=== PATIENT | female | born 2000 | race Caucasian/White ===

== ENCOUNTER 2019-10-29 09:20 | Inpatient (IN) | payer MEDICAID ==
[~2019-10-29] VITALS: Ht 160 cm; Wt 74.2 kg
[2019-10-29] MEDS ORDERED: SODIUM CHLORIDE 0.9% 1,000 ML IVB ONE (09:31)
[2019-10-29] MEDS ORDERED: PANTOPRAZOLE 40 MG/10 ML VIAL INJ IV STA (09:31)
[2019-10-29] MEDS ORDERED: MORPHINE SULFATE 4 MG/ML SYR/VIAL IV ONE (09:45)
[2019-10-29] MEDS ORDERED: ONDANSETRON HCL 4 MG/2 ML VIAL IV ONE (09:45)
[2019-10-29 09:46] LABS: Urine WBC None Seen /hpf (0 - 5)
[2019-10-29 09:47] LABS: Basophils # (auto) 0.1 10 ^3/uL (0-0.2); Basophils % (auto) 0.6 % (0.0-2.0); Eosinophils # (auto) 0 10 ^3/uL (0-0.8); Eosinophils % (auto) 0.2 % (0.0-7.0); Hemoglobin 15.2 g/dL (12.2-16.2); Lymphocytes # (auto) 1.8 10 ^3/uL (0.4-5.4); Lymphocytes % (auto) 12.3 % (10.0-50.0); Mean Corpuscular Hemoglobin 31.2 pg (28.0-32.0); Mean Corpuscular Hgb Conc. 34.6 g/dL (32.0-36.0); Mean Corpuscular Volume 90.1 fL (80.0-100.0); Monocytes # (auto) 0.8 10 ^3/uL (0-1.3); Monocytes % (auto) 5.3 % (0.0-12.0); Neutrophils # (auto) 12.1 10 ^3/uL (1.6-8.6); Neutrophils % (auto) 81.6 % (37.0-80.0); Nucleated Red Blood Cells % 0.1 %; Platelet Count (auto) 293 10^3/uL (140-450); Red Blood Cells 4.88 10^6/uL (4.0-5.20); Red Cell Distribution Width 12.6 % (11.8-14.3); White Blood Cell 14.8 10^3/uL (4.4-10.8)
[2019-10-29 10:02] LABS: Urine Amorphous Crystal MANY /hpf (None Seen); Urine Bacteria NONE SEEN /hpf (None Seen); Urine Blood 3+ /uL (Negative); Urine Mucus FEW (None Seen); Urine Specific Gravity 1.036 (1.001-1.035)
[2019-10-29 10:06] LABS: Albumin 4.7 g/dL (3.4-5.0); Calcium 9.5 mg/dL (8.5-10.1); Potassium 3.6 mmol/L (3.5-5.1)
[2019-10-29 10:09] LABS: Total Protein 8.5 g/dL (6.4-8.2)
[2019-10-29] MEDS ORDERED: HYDROcodone-ACET 5/325MG TAB PO PRN (13:30)
[2019-10-29] MEDS ORDERED: ACETAMINOPHEN 500 MG TAB PO PRN (13:30)
[2019-10-29] MEDS: metroNIDAZOLE 500MG/100ML 100 ML IV SCH ×2 (13:45→21:42)
[2019-10-29] MEDS ORDERED: FAMOTIDINE 20 MG TAB PO ONE (13:45)
[2019-10-29] MEDS: SOD CHL 0.9%/ KCL 20MEQ 1,000 ML IV SCH ×2 (13:45→23:52)
[2019-10-29] MEDS ORDERED: levoFLOXacin 500MG 100 ML IV ONE (13:45)
[2019-10-29 14:30] VITALS: BP 118/49
[2019-10-29 17:00] VITALS: BP 108/63
[2019-10-29 20:00] VITALS: BP 116/61
[2019-10-29 22:00] VITALS: BP 116/61
[2019-10-30] VITALS (8 sets, daily range): BP systolic 96–152; BP diastolic 38–91
[2019-10-30] MEDS: metroNIDAZOLE 500MG/100ML 100 ML IV SCH ×3 (05:45→21:45)
[2019-10-30 06:17] LABS: Basophils # (auto) 0 10 ^3/uL (0-0.2); Basophils % (auto) 0.2 % (0.0-2.0); Eosinophils # (auto) 0.1 10 ^3/uL (0-0.8); Eosinophils % (auto) 0.8 % (0.0-7.0); Hematocrit 36.2 % (36.0-46.0); Hemoglobin 12.7 g/dL (12.2-16.2); Lymphocytes # (auto) 2.3 10 ^3/uL (0.4-5.4); Lymphocytes % (auto) 35.8 % (10.0-50.0); Mean Corpuscular Hemoglobin 31.3 pg (28.0-32.0); Mean Corpuscular Hgb Conc. 35.1 g/dL (32.0-36.0); Mean Corpuscular Volume 89.3 fL (80.0-100.0); Monocytes # (auto) 0.5 10 ^3/uL (0-1.3); Monocytes % (auto) 7.1 % (0.0-12.0); Neutrophils # (auto) 3.6 10 ^3/uL (1.6-8.6); Neutrophils % (auto) 56.1 % (37.0-80.0); Platelet Count (auto) 216 10^3/uL (140-450); Red Blood Cells 4.06 10^6/uL (4.0-5.20); Red Cell Distribution Width 12.5 % (11.8-14.3); White Blood Cell 6.5 10^3/uL (4.4-10.8)
[2019-10-30 06:33] LABS: BUN/Creatinine Ratio 12.2; Calcium 8.3 mg/dL (8.5-10.1); Potassium 3.4 mmol/L (3.5-5.1)
[2019-10-30] MEDS: ONDANSETRON HCL 4 MG/2 ML VIAL IV PRN ×3 (07:32→21:45)
[2019-10-30] MEDS: FAMOTIDINE 20 MG TAB PO SCH (09:13)
[2019-10-30] MEDS: MORPHINE SULF INJ 2 MG/ML SYRINGE 1ML IV PRN ×3 (09:14→21:45)
[2019-10-30] MEDS: levoFLOXacin 500MG 100 ML IV SCH (10:08)
[2019-10-30] MEDS: SOD CHL 0.9%/ KCL 20MEQ 1,000 ML IV SCH ×2 (10:40→21:45)
[2019-10-30 14:56] LABS: Urine WBC None Seen /hpf (0 - 5)
[2019-10-30 15:06] LABS: Urine Bacteria NONE SEEN /hpf (None Seen); Urine Blood 2+ /uL (Negative); Urine Specific Gravity 1.019 (1.001-1.035)
[2019-10-30 15:21] LABS: Protein, Urine 23.3 mg/dL (0.0-11.9)
[2019-10-31 05:00] VITALS: BP 106/45
[2019-10-31] MEDS: SOD CHL 0.9%/ KCL 20MEQ 1,000 ML IV SCH ×2 (06:00→15:30)
[2019-10-31] MEDS: metroNIDAZOLE 500MG/100ML 100 ML IV SCH (06:01)
[2019-10-31] MEDS: MORPHINE SULF INJ 2 MG/ML SYRINGE 1ML IV PRN ×3 (06:01→23:32)
[2019-10-31] MEDS: ONDANSETRON HCL 4 MG/2 ML VIAL IV PRN ×2 (06:01→23:33)
[2019-10-31 06:18] LABS: Potassium 3.6 mmol/L (3.5-5.1)
[2019-10-31 06:23] LABS: BUN/Creatinine Ratio 13.5; Calcium 8.9 mg/dL (8.5-10.1)
[2019-10-31 08:00] VITALS: BP 132/70
[2019-10-31 09:00] VITALS: BP 132/70
[2019-10-31] MEDS: levoFLOXacin 500MG 100 ML IV SCH (09:33)
[2019-10-31] MEDS: FAMOTIDINE 20 MG TAB PO SCH (09:33)
[2019-10-31] MEDS ORDERED: LIDOCAINE VISCOUS 2% 15ML UD ONE (12:07)
[2019-10-31] MEDS ORDERED: NALOXONE HCL 0.4 MG/ML VIAL ONE (12:07)
[2019-10-31] MEDS ORDERED: FLUMAZENIL 0.1 MG/ML INJ 10ML MDV IV ONE (12:07)
[2019-10-31] MEDS ORDERED: SODIUM CHLORIDE LOCK 10 ML ONE (12:07)
[2019-10-31] MEDS ORDERED: diphenhdrAMINE HCL 50 MG/1 ML VL ONE (12:08)
[2019-10-31 12:25] LABS: INR 1.21 (0.9-1.15); Partial Thromboplastin Time 28.3 sec (23.64-32.05)
[2019-10-31 13:00] VITALS: BP_SYST 117; BP_SYST 144; BP_DIAS 72; BP_DIAS 79
[2019-10-31] MEDS: fentaNYL CITRATE 100 MCG/2 ML VL ONE ×3 (13:20→13:28)
[2019-10-31] MEDS: MIDAZOLAM HCL 5 MG/ML-1ML VIAL ONE ×3 (13:20→13:28)
[2019-10-31] MEDS: METOCLOPRAMIDE HCL 5MG/ml INJ 2ml VIAL IV SCH ×2 (15:08→21:31)
[2019-10-31 17:00] VITALS: BP 104/49
[2019-10-31] MEDS: SUCRALFATE 1 GM/10 ML ORAL SUSP PO SCH ×2 (17:56→21:31)
[2019-10-31] MEDS: PANTOPRAZOLE 40 MG/10 ML VIAL INJ IV SCH (21:31)
[2019-10-31 21:48] VITALS: BP 112/48
[2019-11-01] MEDS: SOD CHL 0.9%/ KCL 20MEQ 1,000 ML IV SCH (01:30)
[2019-11-01 05:00] VITALS: BP 72/48
[2019-11-01] MEDS: SUCRALFATE 1 GM/10 ML ORAL SUSP PO SCH ×4 (05:54→22:41)
[2019-11-01] MEDS: METOCLOPRAMIDE HCL 5MG/ml INJ 2ml VIAL IV SCH ×3 (05:54→22:41)
[2019-11-01 08:30] VITALS: BP 143/72
[2019-11-01] MEDS: levoFLOXacin 500MG 100 ML IV SCH (09:34)
[2019-11-01] MEDS: PANTOPRAZOLE 40 MG/10 ML VIAL INJ IV SCH ×2 (09:34→22:41)
[2019-11-01] MEDS: MORPHINE SULF INJ 2 MG/ML SYRINGE 1ML IV PRN (10:34)
[2019-11-01] MEDS: ONDANSETRON HCL 4 MG/2 ML VIAL IV PRN (10:34)
[2019-11-01 11:44] LABS: Basophils # (auto) 0 10 ^3/uL (0-0.2); Basophils % (auto) 0.2 % (0.0-2.0); Eosinophils # (auto) 0 10 ^3/uL (0-0.8); Eosinophils % (auto) 0.1 % (0.0-7.0); Hematocrit 40.4 % (36.0-46.0); Hemoglobin 13.9 g/dL (12.2-16.2); Lymphocytes # (auto) 2.4 10 ^3/uL (0.4-5.4); Mean Corpuscular Hemoglobin 30.6 pg (28.0-32.0); Mean Corpuscular Hgb Conc. 34.3 g/dL (32.0-36.0); Mean Corpuscular Volume 89.2 fL (80.0-100.0); Monocytes % (auto) 7.6 % (0.0-12.0); Neutrophils # (auto) 9.2 10 ^3/uL (1.6-8.6); Neutrophils % (auto) 73.1 % (37.0-80.0); Platelet Count (auto) 279 10^3/uL (140-450); Red Blood Cells 4.53 10^6/uL (4.0-5.20); Red Cell Distribution Width 12.5 % (11.8-14.3); White Blood Cell 12.6 10^3/uL (4.4-10.8)
[2019-11-01 12:06] LABS: Albumin 3.9 g/dL (3.4-5.0); Potassium 3.4 mmol/L (3.5-5.1)
[2019-11-01 12:12] LABS: BUN/Creatinine Ratio 8.6; Bilirubin, Total 0.8 mg/dL (0.2-1.0); Total Protein 7.4 g/dL (6.4-8.2)
[2019-11-01 13:00] VITALS: BP 113/69
[2019-11-01] MEDS ORDERED: PANT40TA2 PO (15:18)
[2019-11-01] MEDS ORDERED: SUCR1TAB38 OR (15:18)
[2019-11-01] MEDS ORDERED: METO5TAB67 PO (15:19)
[2019-11-01] MEDS ORDERED: POTASSIUM EFFERVESENT TAB 25 MEQ PO ONE (15:30)
[2019-11-01] MEDS ORDERED: POTASSIUM CHLORIDE 40 MEQ, LIDOCAINE 1% (LOCAL ANESTH.) 4 ML in SODIUM CHL 0.9% 100 ML IV ONE (16:30)
[2019-11-01 17:13] VITALS: BP 136/65
[2019-11-01 22:00] VITALS: BP 142/76
[2019-11-02] MEDS: ONDANSETRON HCL 4 MG/2 ML VIAL IV PRN (02:12)
[2019-11-02 05:00] VITALS: BP 128/74
[2019-11-02] MEDS: METOCLOPRAMIDE HCL 5MG/ml INJ 2ml VIAL IV SCH ×2 (06:00→14:00)
[2019-11-02] MEDS: SUCRALFATE 1 GM/10 ML ORAL SUSP PO SCH ×2 (06:46→10:49)
[2019-11-02 09:13] VITALS: BP 138/75
[2019-11-02] MEDS: levoFLOXacin 500MG 100 ML IV SCH (10:48)
[2019-11-02] MEDS: PANTOPRAZOLE 40 MG/10 ML VIAL INJ IV SCH (10:48)
== END 2019-11-02 14:45 | disposition home or self-care (01) | DRG 248 ==
LOC: ER 09:20 → OVERFLOW 09:21 → WEST WING 14:29
PROVIDERS: ADMIT Nurse Practitioner Acute Care; ATTEND Internal Medicine
PROC: 0DB88ZX Excision of Small Intestine, Via Natural or Artificial Opening Endoscopic, Diagnostic (ICD-10-PCS; 2019-10-31)
PROC: 0DB68ZX Excision of Stomach, Via Natural or Artificial Opening Endoscopic, Diagnostic (ICD-10-PCS; principal; 2019-10-31 13:16)
DX: A04.9 Bacterial intestinal infection, unspecified (principal); K76.0 Fatty (change of) liver, not elsewhere classified; D72.829 Elevated white blood cell count, unspecified; K29.00 Acute gastritis without bleeding; E86.0 Dehydration; E66.9 Obesity, unspecified; E87.6 Hypokalemia; K44.9 Diaphragmatic hernia without obstruction or gangrene; Z68.28 Body mass index [BMI] 28.0-28.9, adult
CPT/HCPCS: 36415; 43239; 74176; 76705; 80048; 80053; 81001; 81025; 82150; 82570; 83690; 84156; 85025; 85610; 85730; 86850; 86900; 86901; 87086; 96365; 96368; 96375; C9113; G0378; J1956; J2001; J2250; J2405; J3490

== ENCOUNTER 2020-03-08 18:20 | Inpatient (IN) | payer MEDICAID ==
[~2020-03-08] VITALS: Ht 160 cm; Wt 72.6 kg
[~2020-03-08 18:20] MED LIST: METO5TAB67 PO; PANT40TA2 PO; SUCR1TAB22 OR
[2020-03-08] MEDS ORDERED: SODIUM CHLORIDE 0.9% 1,000 ML IV ONE ×2 (18:45→21:30)
[2020-03-08 19:20] LABS: Basophils # (auto) 0 10 ^3/uL (0-0.2); Basophils % (auto) 0.1 % (0.0-2.0); Eosinophils # (auto) 0 10 ^3/uL (0-0.8); Hematocrit 44.1 % (36.0-46.0); Hemoglobin 14.8 g/dL (12.2-16.2); Lymphocytes # (auto) 1.1 10 ^3/uL (0.4-5.4); Lymphocytes % (auto) 4.7 % (10.0-50.0); Mean Corpuscular Hemoglobin 30.5 pg (28.0-32.0); Mean Corpuscular Hgb Conc. 33.6 g/dL (32.0-36.0); Mean Corpuscular Volume 90.8 fL (80.0-100.0); Monocytes # (auto) 0.9 10 ^3/uL (0-1.3); Monocytes % (auto) 3.9 % (0.0-12.0); Neutrophils # (auto) 22.2 10 ^3/uL (1.6-8.6); Neutrophils % (auto) 91.3 % (37.0-80.0); Platelet Count (auto) 348 10^3/uL (140-450); Red Blood Cells 4.86 10^6/uL (4.0-5.20); Red Cell Distribution Width 12.7 % (11.8-14.3); White Blood Cell 24.3 10^3/uL (4.4-10.8)
[2020-03-08 19:43] LABS: Albumin 4.5 g/dL (3.4-5.0); BUN/Creatinine Ratio 12.4; Calcium 9.4 mg/dL (8.5-10.1); Potassium 3.5 mmol/L (3.5-5.1)
[2020-03-08] MEDS ORDERED: ONDANSETRON HCL 4 MG/2 ML VIAL IV ONE (19:45)
[2020-03-08 19:46] LABS: Total Protein 8.3 g/dL (6.4-8.2)
[2020-03-08] MEDS ORDERED: IOHEXOL 300 MG/ML 100ML BOTTLE IJ ONE (21:00)
[2020-03-08] MEDS ORDERED: MORPHINE SULFATE 4 MG/ML SYR/VIAL IV ONE (21:15)
[2020-03-08] MEDS ORDERED: PIPERACILLIN-TAZOB 3.375GM 100 ML IV ONE (21:45)
[2020-03-08 22:31] LABS: Lactic Acid w/Reflex 3.6 mmol/L (0.4-2.0)
[2020-03-08 23:53] LABS: Urine Bacteria NONE SEEN /hpf (None Seen); Urine Blood Negative /uL (Negative); Urine Mucus FEW (None Seen); Urine Specific Gravity 1.026 (1.001-1.035); Urine WBC 1 /hpf (0 - 5)
[2020-03-09] MEDS ORDERED: VANCOMYCIN 1GM/250ML 250 ML IV ONE (01:00)
[2020-03-09] MEDS ORDERED: SODIUM CHLORIDE 0.9% 1,000 ML IV SCH (05:18)
[2020-03-09] MEDS ORDERED: VANCOMYCIN PER PHARMACY 0 MG IV SCH (05:30)
[2020-03-09] MEDS ORDERED: DOCUSATE SOD 100 MG CAP PO PRN (05:30)
[2020-03-09] MEDS ORDERED: METOCLOPRAMIDE HCL 5MG/ml INJ 2ml VIAL IV PRN (05:30)
[2020-03-09] MEDS ORDERED: ACETAMINOPHEN 325 MG TAB PO PRN (05:30)
[2020-03-09] MEDS ORDERED: HYDROcodone-ACET 5/325MG TAB PO PRN (05:30)
[2020-03-09] MEDS ORDERED: MORPHINE SULF INJ 2 MG/ML SYRINGE 1ML IV PRN (05:30)
[2020-03-09] MEDS ORDERED: LORazepam 0.5 MG TAB PO PRN (05:30)
[2020-03-09] MEDS ORDERED: PIPERACILLIN-TAZOB 3.375GM 100 ML IV SCH ×2 (06:00→07:00)
[2020-03-09 07:46] LABS: Basophils # (auto) 0 10 ^3/uL (0-0.2); Basophils % (auto) 0.2 % (0.0-2.0); Eosinophils # (auto) 0 10 ^3/uL (0-0.8); Eosinophils % (auto) 0.1 % (0.0-7.0); Hematocrit 37.7 % (36.0-46.0); Hemoglobin 12.5 g/dL (12.2-16.2); Lymphocytes # (auto) 2.2 10 ^3/uL (0.4-5.4); Mean Corpuscular Hemoglobin 30.5 pg (28.0-32.0); Mean Corpuscular Hgb Conc. 33.2 g/dL (32.0-36.0); Mean Corpuscular Volume 92.1 fL (80.0-100.0); Monocytes # (auto) 1.4 10 ^3/uL (0-1.3); Monocytes % (auto) 8.6 % (0.0-12.0); Neutrophils # (auto) 12.3 10 ^3/uL (1.6-8.6); Neutrophils % (auto) 77.1 % (37.0-80.0); Platelet Count (auto) 244 10^3/uL (140-450); Red Blood Cells 4.09 10^6/uL (4.0-5.20); Red Cell Distribution Width 12.8 % (11.8-14.3); White Blood Cell 15.9 10^3/uL (4.4-10.8)
[2020-03-09 07:53] LABS: BUN/Creatinine Ratio 13.4; Calcium 8.7 mg/dL (8.5-10.1); Potassium 3.4 mmol/L (3.5-5.1)
[2020-03-09 08:25] LABS: Cholesterol 97 mg/dL (< 200); HDL Cholesterol 58 mg/dL (40-59); LDL Cholesterol 39 mg/dL (< 100); Triglycerides 72 mg/dL (< 150)
[2020-03-09 10:15] VITALS: BP 108/62
[2020-03-09 13:00] VITALS: BP 104/66
--- NOTE | 2020-03-09 13:53 | NUR ---
PATIENT LEFT AMA. CHARGE NURSE NOTIFIED. DR MALIK NOTIFIED.
[2020-03-09] MEDS ORDERED: VANCOMYCIN 1GM/250ML 250 ML IV SCH (14:00)
== END 2020-03-09 13:53 | disposition left against medical advice (07) | DRG 251 ==
LOC: ER 18:20 → TELE 18:21 → TELE-WESTW 03-09 10:16
PROVIDERS: ADMIT Hospitalist; ATTEND Hospitalist
DX: R10.9 Unspecified abdominal pain (principal); D72.829 Elevated white blood cell count, unspecified
CPT/HCPCS: 36415; 74177; 80048; 80053; 80061; 81001; 81025; 83605; 83690; 85025; 87040; 87086; G0378; J2405; J2543

== ENCOUNTER 2024-07-07 06:26 | Emergency (ER) | payer MEDICAID ==
[~2024-07-07] VITALS: Ht 160 cm; Wt 77.2 kg
--- NOTE | 2024-07-07 06:42 | ED.PDOC ---
GI ASSESSMENT HPI Comments 23 year old female presents to the ED with chief complaint of N/V. Patient reports that she has been experiencing multiple episodes of N/V every 10-15 minutes since 3am along with associated epigastric abdominal pain. Patient relays that she had a similar episode happen about a month ago with persistent N/V with abdominal pain. Patient states she was diagnosed with a hiatal hernia in 2019, but has not followed up with her PCP regarding this. Patient denies any , fever, chills, diarrhea, dysuria, or hematemesis. Time Seen by MD: 06:38 Primary Care Provider: NONE Reviewed Notes: Nurses Notes, Medications, Allergies Allergies: Coded Allergies: NO KNOWN ALLERGIES (Unverified , 02/18/16) Home Meds No Active Prescriptions or Reported Meds Information Source: Patient Mode of Arrival: Ambulatory Timing: Hours Duration: Since onset Prehospital treatment: None Quality: Aching Vomitus: Watery Stool: Normal Severity: Moderate Recent: None Recent Hx of: None Pain Location: Epigastric Modifying Factors: Nothing Associated sign and symptoms: Nausea, Vomiting, Abdominal Pain Past Medical History Past Medical History (Other): Hiatal hernia Surgical History: Denies all surgeries CHIEF DIGITAL OFFICER History: No Pertinent CHIEF DIGITAL OFFICER History Family History Family History: Unknown Social History Smoker: Non-Smoker Alcohol: Occasionally Drugs: Marijuana Lives In: Home Constitutional: denies: chills, diaphoresis, fatigue, fever, malaise, sweats, weakness, others EENTM: denies: blurred vision, double vision, ear bleeding, ear discharge, ear drainage, ear pain, ear ringing, eye pain, eye redness, hearing loss, mouth pain, mouth swelling, nasal discharge, nose bleeding, nose congestion, nose pain, photophobia, tearing, throat pain, throat swelling, voice changes, others Respiratory: denies: cough, hemoptysis, orthopnea, SOB at rest, shortness of breath, SOB with excertion, stridor, wheezing, others Cardiovascular: denies: chest pain, dizzy spells, diaphoresis, Dyspnea on exertion, edema, irregular heart beat, left arm pain, lightheadedness, palpitations, PND, syncope, others Gastrointestinal: reports: abdominal pain, nausea, vomiting; denies: abdomen distended, blood streaked bowels, constipated, diarrhea, dysphagia, difficulty swallowing, hematemesis, melena, poor appetite, poor fluid intake, rectal bleeding, rectal pain, others Genitourinary: denies: abnormal vagina bleeding, burning, dyspareunia, dysuria, flank pain, frequency, hematuria, incontinence, pain, , vagina discharge, urgency, others Neurological: denies: dizziness, fainting, headache, left sided numbness, left sided weakness, numbness, paresthesia, pre-existing deficit, right sided numbness, right sided weakness, seizure, speech problems, tingling, tremors, weakness, others Musculoskeletal: denies: back pain, gout, joint pain, joint swelling, muscle pain, muscle stiffness, neck pain, others Integumetry: denies: bruises, change in color, change in hair/nails, dryness, laceration, lesions, lumps, rash, wounds, others Allergic/Immunocompromised: denies: Difficulty Healing, Frequent Infections, Hives, Itching, others Hematologic/Lymphatic: denies: anemia, blood clots, easy bleeding, easy bruising, swollen glands, others Endocrine: denies: excessive hunger, excessive sweating, excessive thirst, excessive urination, flushing, intolerance to cold, intolerance to heat, unexplained weight gain, unexplained weight loss, others Psychiatric: denies: anxiety, bipolar disorder, depression, hopeless, panic disorder, schizophrenia, sleepless, suicidal, others All Other Systems: Reviewed and Negative Physical Exam General Appearance: Moderate Distress, Normal HEENT: Normal ENT Inspection, PERRL/EOMI Neck: Full Range of Motion, Non-Tender, Normal, Normal Inspection Respiratory: Chest Non-Tender, Lungs Clear, No Accessory Muscle Use, No Respiratory Distress, Normal Breath Sounds Cardiovascular: No Edema, No JVD, No Murmur, No Gallop, Normal Peripheral Pulses, Regular Rate/Rhythm Breast Exam: Deferred Gastrointestinal: No Organomegaly, Non Tender, No Pulsatile Mass, Normal Bowel Sounds, Soft Genitalia: Deferred Pelvic: Deferred Rectal: Deferred Extremities: No calf tenderness, Normal capillary refill, Normal inspection, Normal range of motion, Non-tender, No pedal edema Musculoskeletal : Apperance: Normal Neurologic: Alert, bank examiner II-XII nml as Tested, No Motor Deficits, Normal Affect, Normal Mood, No Sensory Deficits Cerebellar Function: Normal Reflexes: Normal Skin: Dry, Normal Color, Warm Peripheral Pulses: 3+ Radial (R), 3+ Radial (L) Lymphatic: No Adenopathy Was a procedure done? Was a procedure done?: No GI differential Dx Differential Diagnosis: Constipation, Diverticular disease, Esophagitis, Gastritis/PUD, Gastroenteritis X-Ray, Labs, Meds, VS Vital Signs Date Time Temp Pulse Resp B/P (MAP) Pulse Ox O2 Delivery O2 Flow Rate FiO2 07/07/24 09:10 72 16 109/67 (81) 100 07/07/24 09:08 72 16 109/67 07/07/24 06:59 18 18 98 Room Air* 0 21 07/07/24 06:59 80 18 119/68 (85) 99 07/07/24 06:36 98.1 69 18 124/73 (90) 100 Lab Test 07/07/24 07:24 07/07/24 06:37 Range/Units White Blood Count 7.5 4.4-10.8 10^3/uL Red Blood Count 4.51 4.0-5.20 10^6/uL Hemoglobin 13.8 12.2-16.2 g/dL Hematocrit 40.5 36.0-46.0 % Mean Corpuscular Volume 89.8 80.0-100.0 fL Mean Corpuscular Hemoglobin 30.6 28.0-32.0 pg Mean Corpuscular Hemoglobin Concent 34.1 32.0-36.0 g/dL Red Cell Distribution Width 13.3 11.8-14.3 % Platelet Count 219 140-450 10^3/uL Mean Platelet Volume 8.6 6.9-10.8 fL Neutrophils (%) (Auto) 86.6 H 37.0-80.0 % Lymphocytes (%) (Auto) 5.3 L 10.0-50.0 % Monocytes (%) (Auto) 7.8 0.0-12.0 % Eosinophils (%) (Auto) 0.2 0.0-7.0 % Basophils (%) (Auto) 0.1 0.0-2.0 % Neutrophils # (Auto) 6.5 1.6-8.6 10 ^3/uL Lymphocytes # (Auto) 0.4 0.4-5.4 10 ^3/uL Monocytes # (Auto) 0.6 0-1.3 10 ^3/uL Eosinophils # (Auto) 0 0-0.8 10 ^3/uL Basophils # (Auto) 0 0-0.2 10 ^3/uL Nucleated Red Blood Cells 0.1 % Sodium Level 142 136-145 mmol/L Potassium Level 3.9 3.5-5.1 mmol/L Chloride Level 109 H 98-107 mmol/L Carbon Dioxide Level 23 20-31 mmol/L Anion Gap 10 5-15 Blood Urea Nitrogen 9 9-23 mg/dL Creatinine 0.88 0.550-1.02 mg/dL Glomerular Filtration Rate Calc 94 >90 mL/min BUN/Creatinine Ratio 10.2 10.0-20.0 Serum Glucose 155 H 74-106 mg/dL Calcium Level 10.4 8.7-10.4 mg/dL Beta HCG, Quantitative < 1.5 L 1.5-4.2 mIU/mL Urine Color Yellow Yellow Urine Clarity Turbid H Clear Urine pH 6.0 5.0-9.0 Urine Specific [place] 1.028 1.001-1.035 Urine Protein Trace H Negative Urine Ketones 1+ H Negative Urine Blood Negative Negative /uL Urine Nitrite Negative Negative Urine Bilirubin Negative Negative Urine Urobilinogen Normal Negative mg/dL Urine Leukocyte Esterase 2+ Negative /uL Urine RBC 2 0 - 4 /hpf Urine WBC 8 0 - 5 /hpf Urine Squamous Epithelial Cells Few <5 /hpf Urine Bacteria None seen None Seen /hpf Urine Mucus Few None Seen Urine Glucose Normal Normal mg/dL Current Medications Medications (Trade) Dose Ordered Sig/Alex Route Start Time Stop Time Status Last Admin Sodium Chloride 1,000 ml @ 1,000 mls/hr Q1H ONCE IV 07/07/24 07:15 07/07/24 08:14 DC 07/07/24 07:34 Ondansetron HCl (Zofran) 4 mg ONCE ONCE IV 07/07/24 07:15 07/07/24 07:16 DC 07/07/24 07:37 Prochlorperazine Edisylate (Compazine Inj) 10 mg ONCE ONCE IV 07/07/24 09:00 07/07/24 09:01 DC 07/07/24 09:00 Morphine Sulfate 4 mg ONCE ONCE IV 07/07/24 09:00 07/07/24 09:01 DC 07/07/24 09:08 Patient alert. Came in because of nausea vomiting. History of hiatal hernia. Vitals stable. Ambulating. Establish intravenous access. Was given fluids. Was given Zofran. She could not tolerate GI cocktail. On re-evaluation abdomen is soft nontender. Urinalysis shows UTI. Was given prescription of Macrobid antibiotic. No leg swelling. No shortness a breath. No sign of sepsis. Explained to the patient. Was told to follow up with her primary care physician. Was told to come back if there is any problem. Time of 1ST Reevaluation: 07:38 Reevaluation 1ST: Unchanged Patient Education/Counseling: Diagnosis, Treatment Family Education/Counseling: No Family Present Additional Information I reviewed the following notes from patient's past medical encounters: 02/2020 for abdominal pain and leukocytosis The following tests were ordered, and results were reviewed by me: BMP, CBC, UA, Beta HCG Quant I discussed treatment and results with medical personnel. Departure 1 Departure Time of Disposition: 07:26 Impression: Primary Impression: Intractable nausea and vomiting Additional Impression: UTI (urinary tract infection) Qualified Codes: N30.00 - Acute cystitis without hematuria Disposition: HOME / SELF CARE / HOMELESS Condition: Good e-Prescriptions Pantoprazole Sodium Sesquihydr (Protonix) 40 Mg Tab 40 MG PO DAILY for 5 Days, #5 TAB Prov: KAY PARIKH MD 07/07/24 Ondansetron Odt 4MG Tab (ZOFRAN PO) 4 Mg Tb 4 MG PO DAILY for 5 Days, #5 TAB ODT TAB-DISSOLVE IN MOUTH, THEN SWALLOW Prov: KAY PARIKH MD 07/07/24 Nitrofurantoin Monohydrate Mac (Macrobid) 100 Mg Cap 100 MG PO BID for 7 Days, #14 CAP Prov: KAY PARIKH MD 07/07/24 Discharged With: Self Critical Care Note Critical Care Time?: No Stability Stability form required: No Heart Score Heart Score: Heart Score Response (Comments) Value History N/A 0 EKG N/A 0 Age N/A 0 Risk Factors N/A 0 Troponin N/A 0 Total 0 I personally scribed for KAY PARIKH MD ([email or web address]) on 07/07/24 at 06:42. Electronically submitted by Kiran Fish ([email or web address]). KAY PARIKH MD Jul 07, 2024 06:42
[2024-07-07 06:59] VITALS: PULSE 18; RESP 18; O2SAT 98
[2024-07-07] MEDS: DONNATAL 5ml ORAL Elix (BELLADONNA ALK-PHENOBARB) PO ONE (07:09)
[2024-07-07] MEDS: MAALOX PLUS or MAALOX 30 ML PO ONE (07:10)
[2024-07-07] MEDS: LIDOCAINE VISCOUS 2% 15ML UD PO ONE (07:10)
[2024-07-07 07:22] LABS: Urine Bacteria None Seen /hpf (None Seen)
[2024-07-07] MEDS: SODIUM CHLORIDE 0.9% 1,000 ML IV ONE (07:34)
[2024-07-07] MEDS: ONDANSETRON HCL 4 MG/2 ML VIAL IV ONE (07:37)
[2024-07-07 08:04] LABS: Basophils # (auto) 0 10 ^3/uL (0-0.2); Basophils % (auto) 0.1 % (0.0-2.0); Eosinophils # (auto) 0 10 ^3/uL (0-0.8); Eosinophils % (auto) 0.2 % (0.0-7.0); Hematocrit 40.5 % (36.0-46.0); Hemoglobin 13.8 g/dL (12.2-16.2); Lymphocytes # (auto) 0.4 10 ^3/uL (0.4-5.4); Lymphocytes % (auto) 5.3 % (10.0-50.0); Mean Corpuscular Hemoglobin 30.6 pg (28.0-32.0); Mean Corpuscular Hgb Conc. 34.1 g/dL (32.0-36.0); Mean Corpuscular Volume 89.8 fL (80.0-100.0); Monocytes # (auto) 0.6 10 ^3/uL (0-1.3); Monocytes % (auto) 7.8 % (0.0-12.0); Neutrophils # (auto) 6.5 10 ^3/uL (1.6-8.6); Neutrophils % (auto) 86.6 % (37.0-80.0); Nucleated Red Blood Cells % 0.1 %; Platelet Count (auto) 219 10^3/uL (140-450); Red Blood Cells 4.51 10^6/uL (4.0-5.20); Red Cell Distribution Width 13.3 % (11.8-14.3); White Blood Cell 7.5 10^3/uL (4.4-10.8)
[2024-07-07 08:14] LABS: Urine Blood Negative /uL (Negative); Urine Clarity Turbid (Clear); Urine Color Yellow (Yellow); Urine Mucus FEW (None Seen); Urine Protein, UAD TRACE (Negative); Urine Specific Gravity 1.028 (1.001-1.035); Urine Urobilinogen Normal (Negative); Urine WBC 8 /hpf (0 - 5)
[2024-07-07 08:18] LABS: Potassium 3.9 mmol/L (3.5-5.1); Sodium 142 mmol/L (136-145)
[2024-07-07 08:19] LABS: Anion Gap 10 (5-15); Carbon Dioxide 23 mmol/L (20-31)
[2024-07-07 08:24] LABS: BUN/Creatinine Ratio 10.2 (10.0-20.0); Blood Urea Nitrogen 9 mg/dL (9-23)
[2024-07-07] MEDS: PROCHLORPERAZINE EDISYLATE 5 MG/ML 2ML VIAL IV ONE (09:00)
[2024-07-07] MEDS: MORPHINE SULFATE 4 MG/ML SYR/VIAL IV ONE (09:08)
[2024-07-07 09:15] LABS: Calcium 10.4 mg/dL (8.7-10.4); Chloride 109 mmol/L (98-107); Glucose 155 mg/dL (74-106)
[2024-07-07] MEDS ORDERED: PANT40TA2 PO (10:54)
[2024-07-07] MEDS ORDERED: NITR-87 PO (10:54)
[2024-07-07] MEDS ORDERED: ZOFR4T PO (10:54)
[2024-07-07 11:00] VITALS: BP 111/75; PULSE 75; RESP 16; O2SAT 100
== END 2024-07-07 11:01 | disposition home or self-care (01) ==
LOC: ER 06:26
DX: R11.2 Nausea with vomiting, unspecified (principal); R10.13 Epigastric pain; N39.0 Urinary tract infection, site not specified; F12.90 Cannabis use, unspecified, uncomplicated
CPT/HCPCS: 36415; 80048; 81001; 84702; 85025; 96361; 96374; 96375; 99284; J0780; J2270; J2405; J7030

== ENCOUNTER 2025-03-25 09:10 | Inpatient (IN) | payer MEDICAID ==
[~2025-03-25] VITALS: Ht 160 cm; Wt 75.1 kg
[~2025-03-25 09:10] MED LIST changes: -METO5TAB67 PO; +NITR-87 PO; -SUCR1TAB22 OR; +ZOFR4T PO
--- NOTE | 2025-03-25 10:07 | ED.PDOC ---
GI ASSESSMENT HPI Comments 24 year old female presents to the ED with a chief complaint of abdominal pain onset last night. Patient states she began experiencing epigastric pain as well as nausea/vomiting since last night. She was diagnosed with hiatal hernia recently, concerned that could be cause of symptoms. Denies fever, chills, hematemesis, diarrhea, constipation, melena, blood in stool, dysuria, hematuria. No other symptoms or modifying factors present at this time. Chief Complaint: Abdominal Pain Time Seen by MD: 09:55 Primary Care Provider: NONE Reviewed Notes: Medications, Allergies Allergies: Coded Allergies: NO KNOWN ALLERGIES (Unverified , 02/18/16) Home Meds Active Scripts Pantoprazole Sodium Sesquihydr (Protonix) 40 Mg Tab, 40 MG PO DAILY for 5 Days, #5 TAB Prov:KAY PARIKH MD 07/07/24 Ondansetron Odt 4MG Tab (ZOFRAN PO) 4 Mg Tb, 4 MG PO DAILY for 5 Days, #5 TAB ODT TAB-DISSOLVE IN MOUTH, THEN SWALLOW Prov:KAY PARIKH MD 07/07/24 Nitrofurantoin Monohydrate Mac (Macrobid) 100 Mg Cap, 100 MG PO BID for 7 Days, #14 CAP Prov:KAY PARIKH MD 07/07/24 Information Source: Patient Mode of Arrival: Ambulatory Timing: Hours Duration: Since onset Prehospital treatment: None Quality: Sharp Stool: Loose Severity: Moderate Recent: None Recent Hx of: None Pain Location: Epigastric Modifying Factors: Nothing Associated sign and symptoms: Nausea, Vomiting, Abdominal Pain Past Medical History PAST MEDICAL HISTORY: Denies Surgical History: Denies all surgeries POCKET MACHINE OPERATOR History: No Pertinent POCKET MACHINE OPERATOR History Family History Family History: Unknown Social History Smoker: Non-Smoker Alcohol: Occasionally Drugs: Marijuana Lives In: Home Constitutional: denies: chills, diaphoresis, fatigue, fever, malaise, sweats, weakness, others EENTM: denies: blurred vision, double vision, ear bleeding, ear discharge, ear drainage, ear pain, ear ringing, eye pain, eye redness, hearing loss, mouth pain, mouth swelling, nasal discharge, nose bleeding, nose congestion, nose pain, photophobia, tearing, throat pain, throat swelling, voice changes, others Respiratory: denies: cough, hemoptysis, orthopnea, SOB at rest, shortness of breath, SOB with excertion, stridor, wheezing, others Cardiovascular: denies: chest pain, dizzy spells, diaphoresis, Dyspnea on exertion, edema, irregular heart beat, left arm pain, lightheadedness, palpitations, PND, syncope, others Gastrointestinal: reports: abdominal pain, nausea, vomiting; denies: abdomen distended, blood streaked bowels, constipated, diarrhea, dysphagia, difficulty swallowing, hematemesis, melena, poor appetite, poor fluid intake, rectal bleeding, rectal pain, others Genitourinary: denies: abnormal vagina bleeding, burning, dyspareunia, dysuria, flank pain, frequency, hematuria, incontinence, pain, , vagina discharge, urgency, others Neurological: denies: dizziness, fainting, headache, left sided numbness, left sided weakness, numbness, paresthesia, pre-existing deficit, right sided numbness, right sided weakness, seizure, speech problems, tingling, tremors, weakness, others Musculoskeletal: denies: back pain, gout, joint pain, joint swelling, muscle pain, muscle stiffness, neck pain, others Integumetry: denies: bruises, change in color, change in hair/nails, dryness, laceration, lesions, lumps, rash, wounds, others Allergic/Immunocompromised: denies: Difficulty Healing, Frequent Infections, Hives, Itching, others Hematologic/Lymphatic: denies: anemia, blood clots, easy bleeding, easy bruising, swollen glands, others Endocrine: denies: excessive hunger, excessive sweating, excessive thirst, excessive urination, flushing, intolerance to cold, intolerance to heat, unexplained weight gain, unexplained weight loss, others Psychiatric: denies: anxiety, bipolar disorder, depression, hopeless, panic disorder, schizophrenia, sleepless, suicidal, others All Other Systems: Reviewed and Negative Physical Exam General Appearance: Moderate Distress, Normal HEENT: Normal ENT Inspection, Pharynx Normal, TMs Normal Neck: Full Range of Motion, Non-Tender, Normal, Normal Inspection Respiratory: Chest Non-Tender, Lungs Clear, No Accessory Muscle Use, No Respiratory Distress, Normal Breath Sounds Cardiovascular: No Edema, No JVD, No Murmur, No Gallop, Normal Peripheral Pulses, Regular Rate/Rhythm Breast Exam: Deferred Gastrointestinal: No Organomegaly, Non Tender, No Pulsatile Mass, Normal Bowel Sounds, Soft Genitalia: Deferred Pelvic: Deferred Rectal: Deferred Extremities: No calf tenderness, Normal capillary refill, Normal inspection, Normal range of motion, Non-tender, No pedal edema Musculoskeletal : Apperance: Normal Neurologic: Alert, hall cleaner II-XII nml as Tested, No Motor Deficits, Normal Affect, Normal Mood, No Sensory Deficits Cerebellar Function: Normal Reflexes: Normal Skin: Dry, Normal Color, Warm Peripheral Pulses: 3+ Radial (R), 3+ Radial (L) Lymphatic: No Adenopathy Was a procedure done? Was a procedure done?: No GI differential Dx Differential Diagnosis: Constipation, Diverticular disease, Esophagitis, Gastritis/PUD, Gastroenteritis X-Ray, Labs, Meds, VS Vital Signs Date Time Temp Pulse Resp B/P (MAP) Pulse Ox O2 Delivery O2 Flow Rate FiO2 03/25/25 14:21 63 16 99 Room Air 03/25/25 14:21 98.7 63 16 110/55 (73) 99 98.7 03/25/25 09:16 98.0 73 16 146/76 98 98.0 Lab Test 03/25/25 10:44 03/25/25 10:08 Range/Units White Blood Count 12.3 H 4.4-10.8 10^3/uL Red Blood Count 4.72 4.0-5.20 10^6/uL Hemoglobin 14.3 12.2-16.2 g/dL Hematocrit 42.1 36.0-46.0 % Mean Corpuscular Volume 89.2 80.0-100.0 fL Mean Corpuscular Hemoglobin 30.3 28.0-32.0 pg Mean Corpuscular Hemoglobin Concent 33.9 32.0-36.0 g/dL Red Cell Distribution Width 14.1 11.8-14.3 % Platelet Count 295 140-450 10^3/uL Mean Platelet Volume 8.5 6.9-10.8 fL Neutrophils (%) (Auto) 85.0 H 37.0-80.0 % Lymphocytes (%) (Auto) 10.8 10.0-50.0 % Monocytes (%) (Auto) 4.0 0.0-12.0 % Eosinophils (%) (Auto) 0.0 0.0-7.0 % Basophils (%) (Auto) 0.2 0.0-2.0 % Neutrophils # (Auto) 10.4 H 1.6-8.6 10 ^3/uL Lymphocytes # (Auto) 1.3 0.4-5.4 10 ^3/uL Monocytes # (Auto) 0.5 0-1.3 10 ^3/uL Eosinophils # (Auto) 0 0-0.8 10 ^3/uL Basophils # (Auto) 0 0-0.2 10 ^3/uL Nucleated Red Blood Cells 0.1 % Sodium Level 143 136-145 mmol/L Potassium Level 4.0 3.5-5.1 mmol/L Chloride Level 104 98-107 mmol/L Carbon Dioxide Level 24 20-31 mmol/L Anion Gap 15 5-15 Blood Urea Nitrogen 12 9-23 mg/dL Creatinine 0.84 0.550-1.02 mg/dL Glomerular Filtration Rate Calc 99 >90 mL/min BUN/Creatinine Ratio 14.3 10.0-20.0 Serum Glucose 125 H 74-106 mg/dL Calcium Level 9.9 8.7-10.4 mg/dL Urine Color Colorless Yellow Urine Clarity Ex.turbid Clear Urine pH 6.0 5.0-9.0 Urine Specific [place] 1.029 1.001-1.035 Urine Protein 1+ H Negative Urine Ketones 2+ H Negative Urine Blood 1+ H Negative /uL Urine Nitrite Negative Negative Urine Bilirubin Negative Negative Urine Urobilinogen Normal Negative mg/dL Urine Leukocyte Esterase Negative Negative /uL Urine RBC 16 0 - 4 /hpf Urine Microscopic WBC < 1 0-5 /HPF Urine Squamous Epithelial Cells Many <5 /hpf Urine Amorphous Crystals Many None Seen /hpf Urine Bacteria None seen None Seen /hpf Urine Mucus Few None Seen Urine Glucose Normal Normal mg/dL Current Medications Medications (Trade) Dose Ordered Sig/Alex Route Start Time Stop Time Status Last Admin Sodium Chloride 1,000 ml @ 1,000 mls/hr Q1H ONCE IV 03/25/25 14:15 03/25/25 15:14 03/25/25 14:19 Ondansetron HCl (Zofran) 4 mg ONCE ONCE IV 03/25/25 14:15 03/25/25 14:16 DC 03/25/25 14:17 Patient alert. Came in because of nausea. Vitals stable. Answering questions. Abdomen is soft nontender. Establish intravenous access. Was given fluids. Urinalysis shows ketones. Was given Zofran. WBC slightly elevated. Possible gastroenteritis. Continues to have nausea. Explained to the patient. Continue monitoring. Continues to have abdominal pain. Time of 1ST Reevaluation: 10:25 Reevaluation 1ST: Unchanged Patient Education/Counseling: Diagnosis, Treatment, Prognosis Family Education/Counseling: No Family Present SEPSIS Sepsis Screen Date sepsis recognized/suspect: Mar 25, 2025 Time Sepsis recognized/suspect: 917 Recent Procedure: No On Antibiotic Therapy: No Respiratory Rate >20: No Heart Rate >90: No Temp<36 C (96.8 F) or >38.3 C: No SBP <90 or MAP <65 mmHG: No New Acute Mental Status Change: No Is the patient on CPAP, BIPAP,: No Physician Orders Sodium Chloride 0.9% (03/25/25 14:15) Vital Signs Date Time Temp Pulse Resp B/P (MAP) Pulse Ox O2 Delivery O2 Flow Rate FiO2 03/25/25 14:21 63 16 99 Room Air 03/25/25 14:21 98.7 63 16 110/55 (73) 99 98.7 03/25/25 09:16 98.0 73 16 146/76 98 98.0 Laboratory Tests Test 03/25/25 10:44 White Blood Count 12.3 10^3/uL (4.4-10.8) H Medications Medications Dose Ordered Sig/Alex Route Start Time Stop Time Status Last Admin Dose Admin Ondansetron HCl 4 mg ONCE ONCE IV 03/25/25 14:15 03/25/25 14:16 DC 03/25/25 14:17 Sodium Chloride 1,000 ml @ 1,000 mls/hr Q1H ONCE IV 03/25/25 14:15 03/25/25 15:14 03/25/25 14:19 Departure 1 Departure Time of Disposition: 14:26 Impression: Primary Impression: Gastroenteritis Additional Impression: Dehydration Disposition: ADMITTED INPATIENT Admit to: Med Surg Condition: Guarded Critical Care Note Critical Care Time?: No Stability Stability form required: No Heart Score Heart Score: Heart Score Response (Comments) Value History N/A 0 EKG N/A 0 Age N/A 0 Risk Factors N/A 0 Troponin N/A 0 Total 0 I personally scribed for KAY PARIKH MD ([email or web address]) on 03/25/25 at 10:07. Electronically submitted by Cary Arguello ([email or web address]). KAY PARIKH MD Mar 25, 2025 10:07
[2025-03-25 10:19] LABS: Urine Amorphous Crystal MANY /hpf (None Seen); Urine Protein, UAD 1+ (Negative)
[2025-03-25 11:05] LABS: Hematocrit 42.1 % (36.0-46.0); Hemoglobin 14.3 g/dL (12.2-16.2); Mean Corpuscular Hemoglobin 30.3 pg (28.0-32.0); Mean Corpuscular Volume 89.2 fL (80.0-100.0); Nucleated Red Blood Cells % 0.1 %
[2025-03-25 11:20] LABS: Chloride 104 mmol/L (98-107); Potassium 4.0 mmol/L (3.5-5.1); Sodium 143 mmol/L (136-145)
[2025-03-25 11:21] LABS: Anion Gap 15 (5-15); Calcium 9.9 mg/dL (8.7-10.4); Carbon Dioxide 24 mmol/L (20-31)
[2025-03-25 11:26] LABS: BUN/Creatinine Ratio 14.3 (10.0-20.0); Blood Urea Nitrogen 12 mg/dL (9-23)
[2025-03-25 11:27] LABS: Glucose 125 mg/dL (74-106)
[2025-03-25] MEDS: ONDANSETRON HCL 4 MG/2 ML VIAL IV ONE (14:17)
[2025-03-25] MEDS: SODIUM CHLORIDE 0.9% 1,000 ML IV ONE (14:19)
--- NOTE | 2025-03-25 15:11 | DVH ---
CLINICAL HISTORY: enteritis TECHNIQUE: CT of the abdomen and pelvis was performed without IV contrast. This exam was performed ac cording to our departmental dose optimization program. Up-to-date CT equipment and radiation dose red uction techniques are utilized as appropriate. CTDI 10.3 DLP 488.2 COMPARISON: None FINDINGS: Abdomen/Pelvis: The spleen, pancreas, adrenal glands, kidneys, gallbladder, liver, bladder, and uterus are grossly un remarkable. The abdominal aorta is normal in course and caliber. There are no significant atherosclerotic calcifi cations. There is no free intraperitoneal air or fluid. There is no enlarged abdominal pelvic lymph node. There is no bowel wall thickening or dilatation. The appendix is normal. Other: The imaged lower thorax is unremarkable. No acute osseous abnormality is evident. Impression: No acute noncontrast CT abnormality in the abdomen or pelvis.
--- NOTE | 2025-03-25 15:37 | DVHHP2 ---
Admitting Diagnosis: Abdominal Pain History of Present Illness 24 yo female with hx of hiatal hernia c/o epigastric abdominal pain with associated nausea and vomiting. Denies fever, chills, hematemesis, diarrhea, constipation, melena, blood in stool, dysuria, hematuria. While in the emergency department the patient was evaluated by the provider, As per provider: Labs, vital signs, and imagining monitored. Patient will be admitted for further evaluation and treatment. I discussed admission with the patient/family and is in agreement to treatment plan. Patient Family History: Patient reports no known family medical history. Allergies: Coded Allergies: NO KNOWN ALLERGIES (Unverified , 02/18/16) Home Meds Active Scripts Pantoprazole Sodium Sesquihydr (Protonix) 40 Mg Tab, 40 MG PO DAILY for 5 Days, #5 TAB Prov:KAY PARIKH MD 07/07/24 Ondansetron Odt 4MG Tab (ZOFRAN PO) 4 Mg Tb, 4 MG PO DAILY for 5 Days, #5 TAB ODT TAB-DISSOLVE IN MOUTH, THEN SWALLOW Prov:KAY PARIKH MD 07/07/24 Nitrofurantoin Monohydrate Mac (Macrobid) 100 Mg Cap, 100 MG PO BID for 7 Days, #14 CAP Prov:KAY PARIKH MD 07/07/24 Current Medications Current Medications Medications (Trade) Dose Ordered Sig/Alex Route PRN Reason Start Time Stop Time Status Last Admin Sodium Chloride 1,000 ml @ 120 mls/hr Q8H20M IV 03/25/25 15:45 03/25/25 20:16 Acetaminophen/ Hydrocodone Bitart ([place] 5/325MG Tab) 1 tab Q4HP PRN PO MODERATE PAIN (4-6 PAIN SCALE) 03/25/25 15:45 03/25/25 20:11 Ondansetron HCl (Zofran) 4 mg Q4HP PRN IV NAUSEA / VOMITING 03/25/25 15:45 03/25/25 20:30 Acetaminophen (Tylenol Tablet) 650 mg Q6HP PRN PO PAIN SCALE 1-3 OR TEMP>100.4 03/25/25 15:45 Metronidazole 100 ml @ 100 mls/hr Q8HR IV 03/25/25 15:45 03/25/25 20:16 Pantoprazole Sodium (Protonix) 40 mg DAILY@BREAKFAST IV 03/26/25 08:00 Review of Systems Constitutional: denies chills, denies fever, denies malaise Eyes: denies eye pain, denies vision change ENT: denies ear pain, denies headache, denies nasal congestion, denies painful swallowing, denies voice change Cardiovascular: denies chest pain, denies edema, denies orthopnea, denies palpitations, denies paroxysmal nocturnal dyspnea Respiratory: denies cough, denies shortness of breath Gastrointestinal: denies constipation, denies diarrhea, denies nausea, denies vomiting Genitourinary: denies dysuria, denies frequent urination, denies urethral discharge Musculoskeletal: denies back pain, denies joint pain, denies muscle pain Skin: denies bruising, denies itching, denies rash Neurological: denies focal weakness, denies headache, denies sensory changes Psychiatric: denies anxiety, denies depression Endocrine: denies polydipsia, denies polyuria Hematologic/Lymphatic: denies easy bleeding, denies easy bruising, denies enlarged lymph nodes Allergic/Immunologic: denies allergy, denies hives Vital Signs Vital Signs Date Time Temp Pulse Resp B/P (MAP) Pulse Ox O2 Delivery O2 Flow Rate FiO2 03/25/25 19:59 97.8 60 14 125/67 (86) 97 97.8 03/25/25 14:21 Room Air Physical Exam General Appearance: alert, no distress HEENT: EOMI, PERRLA, normal external inspect of ears, no icterus, no nasal drainage Neck: no carotid bruit, no jugular venous distention (JVD), no lymphadenopathy Chest: normal thorax Respiratory: clear to auscultation, normal air movement Cardiovascular: regular rate and rhythm, no diastolic murmur, no jugular venous distention (JVD), no rub, no systolic murmur Abdominal: soft, no hepatomegaly, no mass, no splenomegaly, no tenderness Genitourinary: grossly normal external Musculoskeletal: no joint tenderness, no swelling Extremities: normal pulses, no calf tenderness, no clubbing, no cyanosis, no edema Skin: no bruising, no jaundice, no rash Neurological: alert, No focal deficit SEPSIS Sepsis Screen Date sepsis recognized/suspect: Mar 25, 2025 Time Sepsis recognized/suspect: 917 Recent Procedure: No On Antibiotic Therapy: No Respiratory Rate >20: No Heart Rate >90: No Temp<36 C (96.8 F) or >38.3 C: No SBP <90 or MAP <65 mmHG: No New Acute Mental Status Change: No Is the patient on CPAP, BIPAP,: No Physician Orders Ct Ab Pel Wo Con-No Oral Or Iv (03/25/25 14:28) Admit (03/25/25 15:33) Code Status (03/25/25 15:33) Sodium Chloride 0.9% (03/25/25 15:45) Hydrocodone-Acet 5/325mg Tab ([place] 5/32 (03/25/25 15:45) Ondansetron Hcl (Zofran) (03/25/25 15:45) Complete Blood Count (03/26/25 04:00) Comprehensive Metabolic Panel (03/26/25 04:00) Condition: Stable (03/25/25 15:33) Acetaminophen Tablet (Tylenol Tablet) (03/25/25 15:45) Clear Liq Diet (03/25/25 Dinner) * [facility] Director Plans (03/25/25 15:33) Metronidazole 500mg/100ml (Flagyl 500mg/ (03/25/25 15:45) Pantoprazole (Protonix) (03/26/25 08:00) Vital Signs Date Time Temp Pulse Resp B/P (MAP) Pulse Ox O2 Delivery O2 Flow Rate FiO2 03/25/25 19:59 97.8 60 14 125/67 (86) 97 97.8 03/25/25 14:21 63 16 99 Room Air 03/25/25 14:21 98.7 63 16 110/55 (73) 99 98.7 03/25/25 09:16 98.0 73 16 146/76 98 98.0 Laboratory Tests Test 03/25/25 10:44 White Blood Count 12.3 10^3/uL (4.4-10.8) H Medications Medications Dose Ordered Sig/Alex Route Start Time Stop Time Status Last Admin Dose Admin Acetaminophen/ Hydrocodone Bitart 1 tab Q4HP PRN PO 03/25/25 15:45 03/25/25 20:11 Metronidazole 100 ml @ 100 mls/hr ONCE ONCE IV 03/25/25 14:30 03/25/25 15:29 DC 03/25/25 14:37 Metronidazole 100 ml @ 100 mls/hr Q8HR IV 03/25/25 15:45 03/25/25 20:16 Ondansetron HCl 4 mg ONCE ONCE IV 03/25/25 14:15 03/25/25 14:16 DC 03/25/25 14:17 Ondansetron HCl 4 mg Q4HP PRN IV 03/25/25 15:45 03/25/25 20:30 Sodium Chloride 1,000 ml @ 120 mls/hr Q8H20M IV 03/25/25 15:45 03/25/25 20:16 Sodium Chloride 1,000 ml @ 1,000 mls/hr Q1H ONCE IV 03/25/25 14:15 03/25/25 15:14 DC 03/25/25 14:19 Results Labs Test 03/25/25 10:44 03/25/25 10:08 Range/Units White Blood Count 12.3 H 4.4-10.8 10^3/uL Red Blood Count 4.72 4.0-5.20 10^6/uL Hemoglobin 14.3 12.2-16.2 g/dL Hematocrit 42.1 36.0-46.0 % Mean Corpuscular Volume 89.2 80.0-100.0 fL Mean Corpuscular Hemoglobin 30.3 28.0-32.0 pg Mean Corpuscular Hemoglobin Concent 33.9 32.0-36.0 g/dL Red Cell Distribution Width 14.1 11.8-14.3 % Platelet Count 295 140-450 10^3/uL Mean Platelet Volume 8.5 6.9-10.8 fL Neutrophils (%) (Auto) 85.0 H 37.0-80.0 % Lymphocytes (%) (Auto) 10.8 10.0-50.0 % Monocytes (%) (Auto) 4.0 0.0-12.0 % Eosinophils (%) (Auto) 0.0 0.0-7.0 % Basophils (%) (Auto) 0.2 0.0-2.0 % Neutrophils # (Auto) 10.4 H 1.6-8.6 10 ^3/uL Lymphocytes # (Auto) 1.3 0.4-5.4 10 ^3/uL Monocytes # (Auto) 0.5 0-1.3 10 ^3/uL Eosinophils # (Auto) 0 0-0.8 10 ^3/uL Basophils # (Auto) 0 0-0.2 10 ^3/uL Nucleated Red Blood Cells 0.1 % Sodium Level 143 136-145 mmol/L Potassium Level 4.0 3.5-5.1 mmol/L Chloride Level 104 98-107 mmol/L Carbon Dioxide Level 24 20-31 mmol/L Anion Gap 15 5-15 Blood Urea Nitrogen 12 9-23 mg/dL Creatinine 0.84 0.550-1.02 mg/dL Glomerular Filtration Rate Calc 99 >90 mL/min BUN/Creatinine Ratio 14.3 10.0-20.0 Serum Glucose 125 H 74-106 mg/dL Calcium Level 9.9 8.7-10.4 mg/dL Beta HCG, Quantitative 0.5 L 1.5-4.2 mIU/mL Urine Color Colorless Yellow Urine Clarity Ex.turbid Clear Urine pH 6.0 5.0-9.0 Urine Specific [place] 1.029 1.001-1.035 Urine Protein 1+ H Negative Urine Ketones 2+ H Negative Urine Blood 1+ H Negative /uL Urine Nitrite Negative Negative Urine Bilirubin Negative Negative Urine Urobilinogen Normal Negative mg/dL Urine Leukocyte Esterase Negative Negative /uL Urine RBC 16 0 - 4 /hpf Urine Microscopic WBC < 1 0-5 /HPF Urine Squamous Epithelial Cells Many <5 /hpf Urine Amorphous Crystals Many None Seen /hpf Urine Bacteria None seen None Seen /hpf Urine Mucus Few None Seen Urine Glucose Normal Normal mg/dL Plan 1. Intractable nausea and vomiting Monitor, GI consult, antiemetics, IV fluids, IV flagyl 2. GERD Monitor, GI consult, PPI 3. Gastroenteritis Monitor, IV Flagyl Plan discussed with: Patient, Other GENIA NGUYEN NP Mar 25, 2025 15:37
[2025-03-25] MEDS ORDERED: ACETAMINOPHEN 325 MG TAB PO PRN (15:45)
[2025-03-25] MEDS: SODIUM CHLORIDE 0.9% 1,000 ML IV SCH (19:54)
[2025-03-25] MEDS: ONDANSETRON HCL 4 MG/2 ML VIAL ONE (19:56)
[2025-03-25] MEDS: HYDROcodone-ACET 5/325MG TAB PO PRN (20:11)
[2025-03-25] MEDS: ONDANSETRON HCL 4 MG/2 ML VIAL IV PRN (20:30)
[2025-03-26 02:25] VITALS: BP 107/54; PULSE 52; RESP 19; TEMP 98.4; O2SAT 100
[2025-03-26 05:00] VITALS: BP 103/51; PULSE 51; RESP 14; TEMP 98.1; O2SAT 100
[2025-03-26 07:51] LABS: Hematocrit 36.4 % (36.0-46.0); Hemoglobin 12.4 g/dL (12.2-16.2); Mean Corpuscular Hemoglobin 30.5 pg (28.0-32.0); Mean Corpuscular Volume 89.3 fL (80.0-100.0); Nucleated Red Blood Cells % 0.0 %
[2025-03-26 08:09] LABS: Alanine Aminotransferase 15 U/L (7-40); Albumin 3.9 g/dL (3.2-4.8); Alkaline Phosphatase 53 U/L (46-116); Anion Gap 9 (5-15); BUN/Creatinine Ratio 17.6 (10.0-20.0); Blood Urea Nitrogen 12 mg/dL (9-23); Carbon Dioxide 26 mmol/L (20-31); Glucose 93 mg/dL (74-106); Potassium 3.8 mmol/L (3.5-5.1); Sodium 144 mmol/L (136-145); Total Protein 6.2 g/dL (5.7-8.2)
[2025-03-26 08:10] LABS: Bilirubin, Total 0.7 mg/dL (0.2-1.0); Calcium 8.6 mg/dL (8.7-10.4); Chloride 109 mmol/L (98-107)
[2025-03-26] MEDS: PANTOPRAZOLE 40 MG/10 ML VIAL INJ IV SCH (08:21)
[2025-03-26 09:00] VITALS: BP 130/64; PULSE 54; RESP 18; TEMP 98; O2SAT 99
[2025-03-26 12:52] LABS: Cannabinoid Screen, Urine Pos (NEGATIVE); Opiate Scree,Urine Neg (NEGATIVE)
[2025-03-26 12:53] VITALS: BP 105/67; PULSE 52; RESP 16; TEMP 97.6; O2SAT 100
[2025-03-26 12:53] LABS: Amphetamine Screen, Urine Neg (NEGATIVE); Barbiturate Scree,Urine Neg (NEGATIVE); Benzodiazephine Screen, Urine Neg (NEGATIVE); Cocaine Screen, Urine Neg (NEGATIVE); Phencyclidine Screen, Urine Neg (NEGATIVE)
--- NOTE | 2025-03-26 13:19 | DVHPN2 ---
Progress Note - Dictate vital signs Vital Sign Date Time Temp Pulse Resp B/P (MAP) Pulse Ox O2 Delivery O2 Flow Rate FiO2 03/26/25 12:53 97.6 52 16 105/67 (80) 100 97.6 03/25/25 14:21 Room Air Total Intake and Output 03/25/25 03/25/25 03/26/25 15:00 23:00 07:00 Intake Total 1100 ml Balance 1100 ml medications Current Medications Medications Dose Ordered Sig/Alex Route Start Time Stop Time Status Last Admin Dose Admin Sodium Chloride 1,000 ml @ 120 mls/hr Q8H20M IV 03/25/25 15:45 03/26/25 08:24 120 MLS/HR Acetaminophen/ Hydrocodone Bitart 1 tab Q4HP PRN PO 03/25/25 15:45 03/25/25 20:11 1 TAB Ondansetron HCl 4 mg Q4HP PRN IV 03/25/25 15:45 03/25/25 20:30 4 MG Acetaminophen 650 mg Q6HP PRN PO 03/25/25 15:45 Metronidazole 100 ml @ 100 mls/hr Q8HR IV 03/25/25 15:45 03/26/25 06:14 100 MLS/HR Pantoprazole Sodium 40 mg DAILY@BREAKFAST IV 03/26/25 08:00 03/26/25 08:21 40 MG laboratory and microbiology Laboratory Tests 03/26/25 07:25 Test 03/26/25 07:25 Range/Units Serum Glucose 93 74-106 mg/dL GENIA NGUYEN NP Mar 26, 2025 13:19
--- NOTE | 2025-03-26 13:27 | DVHINCON2 ---
GI Consult Consult Note GI consult note Date of Consultation: 03/26/2025 Chief Complaint: Gastroenteritis Referring Physician: PATRICK AIKEN H&P: 24-year-old female seen in the ER with complains of epigastric abdominal pain with nausea and vomiting for the last three days. Patient admits to improving pain at this time. No nausea or vomiting. Denies hematemesis. Last bowel movement one day ago denies melena or red blood in stool. Status post EGD [address] Alvarenga diagnosed with gastritis and hiatal hernia. Patient admits to drinking alcohol more than usual on Tuesday which might have triggered her symptoms Past Medical History: Hiatal hernia Past Surgical History: None Social History: NO smoking, +drinking ETOH and+ marijuana use Family History: Noncontributory Review of Systems: Constitutional: no fever, chill, weight loss HEENT: no eye pain, no hearing loss, no oral lesion, no scleral icterus Heart: no chest pain, no chest pressure Lung: no cough, no dyspnea with exertion Abdomen: see HPI Physical exam: General: NAD, AAOX3 Chest: lung carlos clear to auscultation Heart: RRR, no murmur Abdomen: non-distended, no tenderness to palpation, +BS Labs: Labs Test 03/26/25 11:23 03/26/25 07:25 03/25/25 10:44 03/25/25 10:08 Range/Units Urine Opiates Screen Neg NEGATIVE Urine Fentanyl Screen Neg NEGATIVE Urine Barbiturates Screen Neg NEGATIVE Urine Phencyclidine Screen Neg NEGATIVE Urine Amphetamines Screen Neg NEGATIVE Urine Benzodiazepines Screen Neg NEGATIVE Urine Cocaine Screen Neg NEGATIVE Urine Cannabinoids Screen Pos NEGATIVE White Blood Count 7.7 # 4.4-10.8 10^3/uL Red Blood Count 4.08 4.0-5.20 10^6/uL Hemoglobin 12.4 12.2-16.2 g/dL Hematocrit 36.4 # 36.0-46.0 % Mean Corpuscular Volume 89.3 80.0-100.0 fL Mean Corpuscular Hemoglobin 30.5 28.0-32.0 pg Mean Corpuscular Hemoglobin Concent 34.1 32.0-36.0 g/dL Red Cell Distribution Width 14.2 11.8-14.3 % Platelet Count 197 140-450 10^3/uL Mean Platelet Volume 8.1 6.9-10.8 fL Neutrophils (%) (Auto) 58.6 37.0-80.0 % Lymphocytes (%) (Auto) 31.2 10.0-50.0 % Monocytes (%) (Auto) 9.7 0.0-12.0 % Eosinophils (%) (Auto) 0.4 0.0-7.0 % Basophils (%) (Auto) 0.1 0.0-2.0 % Neutrophils # (Auto) 4.5 1.6-8.6 10 ^3/uL Lymphocytes # (Auto) 2.4 0.4-5.4 10 ^3/uL Monocytes # (Auto) 0.7 0-1.3 10 ^3/uL Eosinophils # (Auto) 0 0-0.8 10 ^3/uL Basophils # (Auto) 0 0-0.2 10 ^3/uL Nucleated Red Blood Cells 0.0 % Sodium Level 144 136-145 mmol/L Potassium Level 3.8 3.5-5.1 mmol/L Chloride Level 109 H 98-107 mmol/L Carbon Dioxide Level 26 20-31 mmol/L Anion Gap 9 5-15 Blood Urea Nitrogen 12 9-23 mg/dL Creatinine 0.68 0.550-1.02 mg/dL Glomerular Filtration Rate Calc 124 >90 mL/min BUN/Creatinine Ratio 17.6 10.0-20.0 Serum Glucose 93 74-106 mg/dL Calcium Level 8.6 L 8.7-10.4 mg/dL Total Bilirubin 0.7 0.2-1.0 mg/dL Aspartate Amino Transferase (AST) 19 13-40 U/L Alanine Aminotransferase (ALT) 15 7-40 U/L Alkaline Phosphatase 53 46-116 U/L Total Protein 6.2 5.7-8.2 g/dL Albumin 3.9 3.2-4.8 g/dL Beta HCG, Quantitative 0.5 L 1.5-4.2 mIU/mL Urine Color Colorless Yellow Urine Clarity Ex.turbid Clear Urine pH 6.0 5.0-9.0 Urine Specific [place] 1.029 1.001-1.035 Urine Protein 1+ H Negative Urine Ketones 2+ H Negative Urine Blood 1+ H Negative /uL Urine Nitrite Negative Negative Urine Bilirubin Negative Negative Urine Urobilinogen Normal Negative mg/dL Urine Leukocyte Esterase Negative Negative /uL Urine RBC 16 0 - 4 /hpf Urine Microscopic WBC < 1 0-5 /HPF Urine Squamous Epithelial Cells Many <5 /hpf Urine Amorphous Crystals Many None Seen /hpf Urine Bacteria None seen None Seen /hpf Urine Mucus Few None Seen Urine Glucose Normal Normal mg/dL Imaging: CT abdomen pelvis Impression: No acute noncontrast CT abnormality in the abdomen or pelvis. Assessment: Abdominal pain improved Nausea and vomiting Alcohol use Marijuana use Plan: Discussed with Dr. Alvarenga As patient's symptoms are improving patient can be discharged home from a GI point of view Protonix DC alcohol discussed Outpatient GI follow-up as needed Plan discussed with patient and RN Thank you for this consult Date of Service: Mar 26, 2025 Billing Provider: DEANNA YOUNG Common Visit Codes: CONSULT ONLY Consultation Codes: [id number] CONSULT <60MIN DEANNA YOUNG Mar 26, 2025 13:27
--- NOTE | 2025-03-26 14:07 | DVHDS2 ---
Discharge Summary Date of Admission Mar 25, 2025 at 15:33 Date of Discharge: Mar 26, 2025 Labs/Diagnostic Data: Laboratory Results Test 03/26/25 11:23 03/26/25 07:25 03/25/25 10:44 03/25/25 10:08 Urine Opiates Screen Neg (NEGATIVE) Urine Fentanyl Screen Neg (NEGATIVE) Urine Barbiturates Screen Neg (NEGATIVE) Urine Phencyclidine Screen Neg (NEGATIVE) Urine Amphetamines Screen Neg (NEGATIVE) Urine Benzodiazepines Screen Neg (NEGATIVE) Urine Cocaine Screen Neg (NEGATIVE) Urine Cannabinoids Screen Pos (NEGATIVE) White Blood Count 7.7 10^3/uL (4.4-10.8) Red Blood Count 4.08 10^6/uL (4.0-5.20) Hemoglobin 12.4 g/dL (12.2-16.2) Hematocrit 36.4 % (36.0-46.0) Mean Corpuscular Volume 89.3 fL (80.0-100.0) Mean Corpuscular Hemoglobin 30.5 pg (28.0-32.0) Mean Corpuscular Hemoglobin Concent 34.1 g/dL (32.0-36.0) Red Cell Distribution Width 14.2 % (11.8-14.3) Platelet Count 197 10^3/uL (140-450) Mean Platelet Volume 8.1 fL (6.9-10.8) Neutrophils (%) (Auto) 58.6 % (37.0-80.0) Lymphocytes (%) (Auto) 31.2 % (10.0-50.0) Monocytes (%) (Auto) 9.7 % (0.0-12.0) Eosinophils (%) (Auto) 0.4 % (0.0-7.0) Basophils (%) (Auto) 0.1 % (0.0-2.0) Neutrophils # (Auto) 4.5 10 ^3/uL (1.6-8.6) Lymphocytes # (Auto) 2.4 10 ^3/uL (0.4-5.4) Monocytes # (Auto) 0.7 10 ^3/uL (0-1.3) Eosinophils # (Auto) 0 10 ^3/uL (0-0.8) Basophils # (Auto) 0 10 ^3/uL (0-0.2) Nucleated Red Blood Cells 0.0 % Sodium Level 144 mmol/L (136-145) Potassium Level 3.8 mmol/L (3.5-5.1) Chloride Level 109 mmol/L (98-107) Carbon Dioxide Level 26 mmol/L (20-31) Anion Gap 9 (5-15) Blood Urea Nitrogen 12 mg/dL (9-23) Creatinine 0.68 mg/dL (0.550-1.02) Glomerular Filtration Rate Calc 124 mL/min (>90) BUN/Creatinine Ratio 17.6 (10.0-20.0) Serum Glucose 93 mg/dL (74-106) Calcium Level 8.6 mg/dL (8.7-10.4) Total Bilirubin 0.7 mg/dL (0.2-1.0) Aspartate Amino Transferase (AST) 19 U/L (13-40) Alanine Aminotransferase (ALT) 15 U/L (7-40) Alkaline Phosphatase 53 U/L (46-116) Total Protein 6.2 g/dL (5.7-8.2) Albumin 3.9 g/dL (3.2-4.8) Beta HCG, Quantitative 0.5 mIU/mL (1.5-4.2) Urine Color Colorless (Yellow) Urine Clarity Ex.turbid (Clear) Urine pH 6.0 (5.0-9.0) Urine Specific [place] 1.029 (1.001-1.035) Urine Protein 1+ (Negative) Urine Ketones 2+ (Negative) Urine Blood 1+ /uL (Negative) Urine Nitrite Negative (Negative) Urine Bilirubin Negative (Negative) Urine Urobilinogen Normal mg/dL (Negative) Urine Leukocyte Esterase Negative /uL (Negative) Urine RBC 16 /hpf (0 - 4) Urine Microscopic WBC < 1 /HPF (0-5) Urine Squamous Epithelial Cells Many /hpf (<5) Urine Amorphous Crystals Many /hpf (None Seen) Urine Bacteria None seen /hpf (None Seen) Urine Mucus Few (None Seen) Urine Glucose Normal mg/dL (Normal) Other Laboratory Tests 03/26/25 07:25 Brief Hx & Hospital Course: 24 yo female with hx of hiatal hernia c/o epigastric abdominal pain with associated nausea and vomiting. Denies fever, chills, hematemesis, diarrhea, constipation, melena, blood in stool, dysuria, hematuria. Patient was admitted for intractable abdominal pain and nausea and vomiting. Patient stated she had been drinking at a concert and probably drink a little too much. She was positive for cannabis. Patient states most likely contributed to her condition. She also has a history of hiatal hernia. Patient was given IV fluids and IV Flagyl and IV Protonix. Patient had slight leukocytosis on admission most likely reactive from nausea and vomiting. White blood cell count was normal upon discharge. Patient was instructed to follow-up with her PCP in 1 week. The patient received proper medical treatment and medications. Vital signs, Imaging and Laboratory Work was monitored daily. All consults recommendations were followed as provided. There were no complaints or new complaints upon discharge, all questions and concerns were answered. Patient was advised to return to the ER or call 911 if any headaches, dizziness, shortness of breath, chest pain, bleeding, fevers, or worsening of medical condition. Patient/Family was counseled about treatment plan, medications, possible side effects, patient verbalized understanding. All questions were answered to the best of my ability. The patient symptoms improved and they are okay to be DC. Condition at Discharge: Stable Final Diagnosis/Problems List Nausea r/t ETOH and cannabis Hx hiatal hernia Intractable nausea and vomiting GERD Gastroenteritis Discharge Disposition: Home Discharge Instruct/Medications Diet: Regular Activity: No Restrictions, As Tolerated Scheduled Nitrofurantoin Monohydrate Mac (Macrobid), 100 MG PO BID Ondansetron Odt 4MG Tab (Zofran Po), 4 MG PO DAILY Pantoprazole Sodium Sesquihydr (Protonix), 40 MG PO DAILY Discharge Statement: "Patient was advised to return to the ER or call 911 if any headaches, dizziness, shortness of breath, chest pain, abdominal pain, bleeding, fevers, or worsening of medical condition. Patient was counseled about treatment plan, medications, possible side effects, patientverbalized understanding. All questions were answered to the best of my ability. This discharge took greater then 30 minutes in planning, reviewing documentation, counseling the patient, and discussing with other team members." ASSESSMENT ASSESSMENT Assessment Nausea r/t ETOH and cannabis Hx hiatal hernia GENIA NGUYEN NP Mar 26, 2025 14:07
[2025-03-26 14:18] VITALS: TEMP 36.4
--- NOTE | 2025-03-26 15:39 | DVHPN2 ---
Progress Note - Dictate Date Seen: Mar 26, 2025 Medical Necessity Reason Pt with a Central, PICC or Fol: No Subjective No new complaints Feeling better Tolerating diet No further episodes of nausea and vomiting vital signs Vital Sign Date Time Temp Pulse Resp B/P (MAP) Pulse Ox O2 Delivery O2 Flow Rate FiO2 03/26/25 14:18 36.4 03/26/25 12:53 52 16 105/67 (80) 100 03/25/25 14:21 Room Air Total Intake and Output 03/25/25 03/25/25 03/26/25 15:00 23:00 07:00 Intake Total 1100 ml Balance 1100 ml medications Current Medications Medications Dose Ordered Sig/Alex Route Start Time Stop Time Status Last Admin Dose Admin Sodium Chloride 1,000 ml @ 120 mls/hr Q8H20M IV 03/25/25 15:45 03/26/25 08:24 120 MLS/HR Acetaminophen/ Hydrocodone Bitart 1 tab Q4HP PRN PO 03/25/25 15:45 03/25/25 20:11 1 TAB Ondansetron HCl 4 mg Q4HP PRN IV 03/25/25 15:45 03/25/25 20:30 4 MG Acetaminophen 650 mg Q6HP PRN PO 03/25/25 15:45 Metronidazole 100 ml @ 100 mls/hr Q8HR IV 03/25/25 15:45 03/26/25 14:30 100 MLS/HR Pantoprazole Sodium 40 mg DAILY@BREAKFAST IV 03/26/25 08:00 03/26/25 08:21 40 MG objective General: NAD, AAOX3 Chest: lung carlos clear to auscultation Heart: RRR, no murmur Abdomen: non-distended, no tenderness to palpation, +BS laboratory and microbiology Laboratory Tests 03/26/25 07:25 Test 03/26/25 07:25 Range/Units Serum Glucose 93 74-106 mg/dL Problems(with codes): (1) Gastroenteritis (2) Dehydration (3) Intractable nausea and vomiting Prognosis Plan Advance diet as tolerated Discharge planning is in progress Patient stable for discharge from GI point of view She can follow up in my office as an outpatient for any ongoing GI symptoms Plan discussed with: Other (Melony Rehman) SHELLEY WHYTE MD Mar 26, 2025 15:39
== END 2025-03-26 15:42 | disposition home or self-care (01) | DRG 249 ==
LOC: ER 09:10 → OVERFLOW 15:33
PROVIDERS: ADMIT Nurse Practitioner; ATTEND Nurse Practitioner
DX: R11.2 Nausea with vomiting, unspecified (principal); D72.829 Elevated white blood cell count, unspecified; E86.0 Dehydration; K21.9 Gastro-esophageal reflux disease without esophagitis; K44.9 Diaphragmatic hernia without obstruction or gangrene; F12.90 Cannabis use, unspecified, uncomplicated
CPT/HCPCS: 36415; 74176; 80048; 80053; 80307; 81001; 84702; 85025; 96374; G0378; J2405; J2470; J3490